=== PATIENT | female | born 1950 | race Caucasian/White ===

== ENCOUNTER 2019-01-14 10:14 | Emergency (ER) | payer BC, SELFPAY ==
[2019-01-14 10:18] VITALS: BP 139/72; PULSE 87; RESP 20; TEMP 37.2; O2SAT 97
--- NOTE | 2019-01-14 10:28 | DI.CT_ITS ---
SYMPTOM/DIAGNOSIS: SORE THROAT WITH FULLNESS NECK CT: A post contrast exam was performed. There is mild symmetric tonsillar enlargement. There is no evidence of abscess, mass or fluid collection. The airway appears intact. The epiglottis appears normal. The parotid and submandibular glands are unremarkable. There is a heterogeneous lesion in the left lobe of the thyroid. The right lobe of the thyroid is unremarkable. There is no vascular occlusion or significant stenosis. The visualized portions of the upper lobes appear clear. There are mild degenerative changes, greatest at the C 5-6 disc level. There is mild sinus disease. The visualized portions of the brain and orbits are unremarkable. IMPRESSION: 1. Mild tonsillar enlargement without evidence of a mass or abscess. 2. Left thyroid nodule. A thyroid ultrasound could be performed for further evaluation.
--- NOTE | 2019-01-14 10:30 | W.ED.GENAD ---
Discharge Plan Disposition Patient Disposition: HOME Condition: Improving Discharge Details Chief Complaint: Sorethroat Clinical Impression: Acute maxillary sinusitis Primary Care Provider: Aayush Lomeli ED Provider: Devon Estrada Home Meds and New Rx's Prescriptions: New cefdinir 300 mg capsule 300 mg PO Q12H 10 Days Qty: 20 RF: 0 No Action No Known Home Meds RF: 0 Discharge Instructions Instructions: Sinusitis (ED) Additional Instructions: Home to rest. Take antibiotics as prescribed. Small, frequent sips of fluids to maintain hydration. May use Tylenol and/or ibuprofen as needed for discomfort. Return for any acute concerns. Follow-up with regular doctor if not improving in 7 days time. Medical Decision Making 68-year-old female presents from home with 3 days of sore throat and mild muffled voice. She is afebrile, well-appearing, normal vital signs. Differential diagnosis would include streptococcal pharyngitis, mononucleosis, deep or danger space infection. IV access established, screening labs obtained home patient given small fluid bolus and parenteral dose of dexamethasone. Please are reassuring. CT with mucosal sinus thickening, no evidence of abscess, otherwise unremarkable study. I will treat her for acute sinusitis with a course of Cefdinir. She stable, improved, appropriate for discharge to home Lab Data Lab results reviewed: Yes I reviewed the patient's lab results. Laboratory Results - last 24 hr 01/14/19 01/14/19 01/14/19 11:20 11:20 11:20 WBC 10.83 H RBC 4.06 Hgb 12.6 Hct 37.3 MCV 91.9 MCH 31.0 MCHC 33.8 RDW 12.8 Plt Count 243 MPV 9.9 Immature Gran % 0.3 Neutrophils % 66.8 Lymphocytes % 14.6 Monocytes % 14.1 Eosinophils % 3.9 Basophils % 0.3 Absolute Neutrophils 7.23 H Absolute Lymphocytes 1.58 Absolute Monocytes 1.53 H Absolute Eosinophils 0.42 Absolute Basophils 0.03 Differential Comment Agrees w/ instrument RBC Morphology Normal Sodium 141 Potassium 4.1 Chloride 103 Carbon Dioxide 29.0 Anion Gap 9.0 BUN 11 Creatinine 0.77 Estimated GFR/1.73 m2 >= 60.00 Glucose 91 Calcium 8.4 L Total Bilirubin 0.3 AST 20 ALT 21 Alkaline Phosphatase 91 Total Protein 7.9 Albumin 3.3 L Monoscreen Negative HPI General Mode of arrival: ambulatory. Date/Time Provider Initiated Documentation: 01/14/19 10:16. Limitations to Documentation: no limitations. Information obtained by: patient. History of Present Illness 68 year old F presents to the emergency department with the chief complaint of Sore throat and mild change to voice, described as moderate, Quality is described as aching, and is localized to the mouth. Patient reports no radiation. Patient started experiencing this day(s) and it has been constant. No relieving factors improve symptom(s), No exacerbating factors reported . Patient notes other (Sinus drainage). Patient did receive the following treatments prior to arrival, none Related Data Home Medications Medication Instructions Recorded Confirmed Unknown [No Known Home Meds] 01/14/19 01/14/19 cefdinir 300 mg PO Q12H 10 Days #20 cap 01/14/19 Previous Rx's Medication Instructions Recorded cefdinir 300 mg PO Q12H 10 Days #20 cap 01/14/19 Allergies Allergy/AdvReac Type Severity Reaction Status Date / Time Penicillins Allergy Unknown Unverified 01/14/19 10:21 General Stated Complaint: Sorethroat MARIA DOLORES: 3 Review of Systems Review of Systems 8 systems reviewed and otherwise negative [facility] Surgical History Appendectomy Biopsy of breast (~2006) Colonoscopy - MAC Excision, Skin Mass Ligation of fallopian tube Social History Smoking and Tabacco status: Never Exam Narrative Exam Narrative: GEN: awake, alert, oriented 3. Pleasant, well groomed, interactive. HEAD: Normocephalic, atraumatic ENT: Mucous membranes moist, oropharynx erythematous tonsillar pillars, uvula midline, no exudate or swelling, External ear exam unremarkable, tympanic membranes clear EYES: PERRL, EOMI NECK: Full ROM, no SHERYL, no menigismus CHEST/RESP: Nontender, clear to auscultation bilateral, no wheeze/rhonchi/rales CARDIOVASCULAR: RRR, no murmur, rub anselmo. 2+ Rad pulse bilateral ABDOMEN: Soft, nontender, no mass. +Bowel sounds EXT: Full ROM, no edema, no rash Neuro: Grossly normal neurologic exam, conversant, interactive. Psych: Speech fluent, thoughts congruent, affect normal Course Vital Signs Temperature 37.2 C 01/14/19 10:18 Pulse 87 01/14/19 10:18 Respiratory Rate 20 01/14/19 10:18 Blood Pressure 139/72 01/14/19 10:18 Pulse Oximetry 97 01/14/19 10:18 Temperature 37.2 C 01/14/19 10:18 Temperature Source Temporal Artery Scan 01/14/19 10:18 Pulse 87 01/14/19 10:18 Respiratory Rate 20 01/14/19 10:18 Respiratory Effort Non-Labored 01/14/19 10:18 Blood Pressure 139/72 01/14/19 10:18 Blood Pressure Position Sitting 01/14/19 10:18 Pulse Oximetry 97 01/14/19 10:18 Oxygen Delivery Method Room Air 01/14/19 10:18 Oxygen Flow Rate 0 01/14/19 10:18 Pain Level 7 01/14/19 10:18
[2019-01-14] MEDS: Normal Saline 1,000 ML 500 ML IV (10:56)
[2019-01-14] MEDS: Dexamethasone 10 MG/ML VIAL IVP (10:56)
[2019-01-14 11:28] LABS: Abs Immature Grans 0.03 k/cumm (0.0-0.09); Absolute Basophil Count 0.03 k/cumm (0.0-0.2); Absolute Eosinophil Count 0.42 k/cumm (0.0-0.7); Absolute Lymphocyte Count 1.58 k/cumm (1.2-3.4); Absolute Monocyte Count 1.53 k/cumm (0.11-0.7); Basophils % 0.3; Eosinophils % 3.9; HCT 37.3 % (36.0-46.0); HGB 12.6 g/dL (12.0-15.5); Immature Grans % 0.3; Lymphocytes % 14.6; Mean Corp. HGB Concentration 33.8 g/dL (32.0-36.0); Mean Corpuscular Volume 91.9 fL (80-95); Mean Platelet Volume 9.9 fL (8.0-11.0); Monocytes % 14.1; Neutrophils % 66.8; Platelet Count 243 x1000/uL (130-400); RBC 4.06 m/cumm (4.00-5.20); RBC Distribution Width 12.8 % (11.7-14.6); White Blood Cell Count 10.83 k/cumm (4.4-10.8)
[2019-01-14 11:37] LABS: Mono Screening Negative (Negative)
[2019-01-14 11:38] LABS: ALT 21 U/L (12-78); AST 20 U/L (15-37); Albumin 3.3 g/dL (3.4-5.0); Alkaline Phosphatase 91 U/L (46-116); BUN 11 mg/dL (7-18); Bilirubin, Total 0.3 mg/dL (0.2-1.0); CREATININE 0.77 mg/dL (0.55-1.02); Calcium 8.4 mg/dL (8.5-10.1); Chloride 103 mmol/L (98-107); Glucose 91 mg/dL (70-100); Potassium 4.1 mmol/L (3.5-5.1); Sodium 141 mmol/L (136-145); Total Protein 7.9 g/dL (6.4-8.2)
[2019-01-14 11:49] LABS: Absolute Neutrophil Count 7.23 k/cumm (1.2-6.7)
[2019-01-14 11:50] LABS: Diff Comment Agrees w/ Instrument
[2019-01-14 11:51] LABS: RBC Morphology Normal
--- NOTE | 2019-01-14 13:00 | DI.VRAD_ITS ---
EXAM: CT Neck With Contrast EXAM DATE/TIME: 01/14/2019 10:30 AM CLINICAL HISTORY: 68 years old, female; Signs and symptoms; Other: Sore throat with fullness TECHNIQUE: Axial computed tomography images of the neck with intravenous contrast. All CT scans at this facility use at least one of these dose optimization techniques: automated exposure control; mA and/or kV adjustment per patient size (includes targeted exams where dose is matched to clinical indication); or iterative reconstruction. Coronal and sagittal reformatted images were created and reviewed. CONTRAST: Contrast Material: 100 ml of omnipaque 350; Contrast Route: iv COMPARISON: No relevant prior studies available. FINDINGS: Sinuses: There is mild mucoperiosteal thickening in the ethmoid air cells and left maxillary sinus. Oropharynx: The tonsils are enlarged. No evidence for a fluid attenuation collection. There is lymphoid hyperplasia at the tongue base. Larynx: Normal. Normal epiglottis. Submandibular/Parotid glands: Normal. Glands are normal in size. Thyroid: There is a large partially enhancing left lobe thyroid lesion 1.9 cm. Followup sonography recommended. Lymph nodes: There is mild bilateral carotids basilar and posterior cervical adenopathy. Lungs: Normal as visualized. Vasculature: No acute findings. Bones/joints: Mild lower cervical spondylosis. Soft tissues: See Thyroid Finding. IMPRESSION: Tonsillitis and pharyngitis. No evidence for abscess. Mild adenitis, likely reactive. COMMENT: Preliminary interpretation is based on receipt of 259 image(s). A final report will be issued subsequently. Dictated and Authenticated by: Cyndy Saavedra MD. Ordering:JOSELUIS Osorio MD
[2019-01-14 13:38] VITALS: BP 139/72; PULSE 87; RESP 20; TEMP 37.2; O2SAT 97
== END 2019-01-14 13:45 | disposition home or self-care (01) ==
PROVIDERS: Emergency Provider Emergency Medicine; PCP Emergency Medicine
DX: J01.00 Acute maxillary sinusitis, unspecified (principal)
CPT/HCPCS: 36415; 70491; 80053; 87880; 96361; 96374; 99285; 85025; 86308; 87081; 99284; J1100

== ENCOUNTER 2023-06-03 01:39 | Outpatient (CLI) | payer MEDICARE, SELFPAY ==
[2023-06-03 12:32] LABS: Hemoglobin A1C 5.6 % (<5.7)
[2023-06-03 12:40] LABS: ALT 23 U/L (14-59); AST 19 U/L (15-37); Albumin 3.8 g/dL (3.4-5.0); Alkaline Phosphatase 73 U/L (46-116); Anion Gap 7.3 mmol/L (3-11); BUN 19 mg/dL (7-18); Bilirubin, Total 0.4 mg/dL (0.2-1.0); CO2 29.7 mmol/L (21.0-32.0); CREATININE 0.8 mg/dL (0.55-1.02); Calcium 9.6 mg/dL (8.5-10.1); Calculated LDL 166 mg/dL (<100); Chloride 106 mmol/L (98-107); Cholesterol 262 mg/dL (<200); Estimated GFR 79.22 (mL/min/1.73m2); Glucose 95 mg/dL (74-106); HDL Cholesterol 88 mg/dL (40-60); Potassium 4.3 mmol/L (3.5-5.1); Sodium 143 mmol/L (136-145); TSH (W/Ref FT4) 0.59 uIU/mL (0.36-3.74); Total Protein 7.5 g/dL (6.4-8.2); Triglyceride 44 mg/dL (<150)
== END 2023-06-03 01:40 | disposition home or self-care (01) ==
LOC: LOS 01:40
PROVIDERS: PCP Nurse Practitioner Family; Visit Provider Nurse Practitioner Family
DX: E78.5 Hyperlipidemia, unspecified (principal); R73.01 Impaired fasting glucose
CPT/HCPCS: 36415; 80053; 80061; 83036; 84443

== ENCOUNTER 2024-06-18 11:25 | Outpatient (CLI) | payer MEDICARE, SELFPAY ==
[2024-06-18 12:55] LABS: Anion Gap 8.1 mmol/L (3-11); BUN 13 mg/dL (7-18); CO2 28.9 mmol/L (21.0-32.0); CREATININE 0.8 mg/dL (0.55-1.02); Calcium 9.6 mg/dL (8.5-10.1); Calculated LDL 152 mg/dL (<100); Chloride 106 mmol/L (98-107); Cholesterol 263 mg/dL (<200); Estimated GFR 78.72 (mL/min/1.73m2); Glucose 96 mg/dL (74-106); HDL Cholesterol 95 mg/dL (40-60); Potassium 3.9 mmol/L (3.5-5.1); Sodium 143 mmol/L (136-145); Triglyceride 81 mg/dL (<150)
[2024-06-19 10:33] LABS: HBs Antibody, Quant <3.1 mIU/mL (See Note); Hep B Surface Ab Negative (See Note); Hepatitis B Core Antibody Negative (Negative); Hepatitis B Surface Antigen Negative (Negative)
[2024-06-19 10:49] LABS: HIV-1/2 Ag & Ab Screen Negative (Negative)
[2024-06-19 11:03] LABS: Hepatitis C Ab w Rflx HCV PCR Negative (Negative)
== END 2024-06-18 11:26 | disposition home or self-care (01) ==
LOC: LOS 11:25
PROVIDERS: PCP Nurse Practitioner Family; Referring Provider Nurse Practitioner Family; Visit Provider Nurse Practitioner Family
DX: Z11.59 Encounter for screening for other viral diseases (principal); Z00.00 Encounter for general adult medical examination without abnormal findings; E78.5 Hyperlipidemia, unspecified; Z11.4 Encounter for screening for human immunodeficiency virus [HIV]; Z71.89 Other specified counseling; Z85.828 Personal history of other malignant neoplasm of skin
CPT/HCPCS: 36415; 80048; 80061; 86704; 86706; 86803; 87340; 87389

== ENCOUNTER 2024-12-04 09:46 | Emergency (ER) | payer MEDICARE, SELFPAY ==
[2024-12-04 09:57] VITALS: BP 149/79; PULSE 78; RESP 18; TEMP 36.8; O2SAT 98
[2024-12-04 10:06] VITALS: BP 149/79; PULSE 78; RESP 18; TEMP 36.8; O2SAT 98
--- NOTE | 2024-12-04 10:15 | DI.RAD_ITS ---
Exam(s) XR CHEST 2V PA LATERAL EXAM: XR CHEST 2V PA LATERAL CLINICAL HISTORY: cough TECHNIQUE: 2D digital imaging was performed. Two views. COMPARISON: CR CHEST 2 VIEWS PA,LAT from 12/24/2017 FINDINGS: HEART: Normal size. Aorta: Not dilated. PULMONARY VASCULATURE: Normal. MEDIASTINUM: Unremarkable. LUNGS: Clear. PLEURAL SPACE: No pleural effusion or pneumothorax. BONE:Unremarkable for age. SOFT TISSUES: Unremarkable. IMPRESSION: No acute abnormality. DATA REPOSITORY: RADIATION DOSE DELIVERED:
[2024-12-04 11:38] LABS: COVID-19 PCR Negative (Negative); Influenza A PCR Negative (Negative); Influenza B PCR Negative (Negative); RSV PCR Negative (Negative)
[2024-12-04 11:39] LABS: Source Nasopharynx
--- NOTE | 2024-12-04 11:44 | ED.GENADUL_ITS ---
Discharge Plan Disposition Patient Disposition: Home Condition: Stable Discharge Details Clinical Impression: Upper respiratory infection Primary Care Provider: June Pierce ED Provider: Jonathan Hernandez Home Meds and New Rx's Prescriptions: No Action No Known Home Meds Discharge Instructions Instructions: Albuterol, Upper Respiratory Infection ED Additional Instructions: You were seen in the emergency department for your respiratory infection for 1 day, you have no tachycardia, you are afebrile and her oxygen saturation is perfect. You likely have a virus as you have diffuse symptoms, you are negative for COVID and the flu and there is no evidence for pneumonia, please use therapeutic dosing of Tylenol (acetamenophen) & Advil (ibuprofen) in an alternat ing fashion as follows: Take 650mg of Tylenol every 6 hours without missing doses- that is 4 times per day. Group Home in between the Tylenol dosings, take 400-600mg of Advil also on a 6 hour schedule, that is also 4 times per day. The daily maximum dosing of Tylenol is 3000mg, and the daily maximum dosing of Advil is 2400mg. This is safe to do for weeks. Please note that some common cold medications & prescription pain medications may contain acetamenophen and you need to read OTC drug labels and factor that in to maximum daily dosings. Please use the provided inhaler for shortness of breath and symptomatic relief, please return to the emergency department for severe increase in chest pain, shortness of breath or any other emergent concerns Referrals: June Pierce, FRONT DESK ATTENDANT [Primary Care Provider] - Discharge Data Discharge Date/Time-TO BE ENTERED AT DEPARTURE: 12/04/24 12:16 HPI General Date/Time Provider Initiated Documentation: 12/04/24 10:17 . HPI Narrative: 73 year-old female presents to ED today by POV/ambulating with a chief complaint of sore throat, coughing, wheezing at nights with onset yesterday. Quality described as generalized upper respiratory infection, no radiation to profound shortness of breath, chest pain, endorses that her lungs are irritated as she is coughing and states that she can taste blood sometimes when she is coughing though she has not coughed up any blood, denies inability to swallow or vocal changes or trismus. Severity is described as moderate. Palliating factors include nothing specific attempted. Provoking factors include nothing specific. Patient not anticoagulated. Related Data Home Medications ?Medication ?Instructions ?Recorded ?Confirmed Unknown [No Known Home Meds] 01/14/19 12/04/24 Allergies Allergy/AdvReac Type Severity Reaction Status Date / Time Penicillins Allergy Severe Paralysis Verified 12/04/24 10:09 General Stated Complaint: RespSymp MARIA DOLORES: 3 Review of Systems All systems reviewed & are unremarkable except as noted in HPI and below Exam Narrative Exam Narrative: GENERAL APPEARANCE: Well-nourished, non-toxic, awake and alert, atraumatic, no acute distress. SKIN: Warm, pink, dry, intact, without rashes/lesions/ulcerations. HEAD: Normocephalic, atraumatic, normal hair distribution for gender/age. EYES: Normal conjunctiva, no exudates on lids/lashes. ENT: Nares patent, no circumoral cyanosis, no facial swelling NECK: Supple, trachea midline, painless cervical ROM. LUNGS/CHEST: Lungs CTA bilaterally, non-labored respirations, normal A/P diamete r, symmetrical expansion, no chest wall deformity HEART (CV/PV): Regular rate and rhythm without murmur, no peripheral edema, no JVD. ABDOMEN: Soft, non-distended, no guarding. MSK: Normal ROM, no swelling/deformity to bilateral UEs or LEs, moving all extremities without weakness, no cyanosis, spine midline without tenderness, normal curvature. NEURO: Mental Status AAOx4 - alert to person, place, time, events No facial droop, no forehead involvement. Motor: No focal weakness - strength 5/5 in bilateral UEs and LEs, proximal and distal, symmetric. Sensory: sensation intact to light touch globally. Gait normal: patient ambulated without ataxia into ED room. PSYCH: euthymic, cooperative, pleasant, appropriate speech Course Vital Signs Vital signs: Vital Signs Temperature 36.8 C 12/04/24 09:57 Pulse 78 12/04/24 09:57 Respiratory Rate 18 12/04/24 09:57 Blood Pressure 149/79 H 12/04/24 09:57 Pulse Oximetry 98 12/04/24 09:57 Temperature 36.8 C 12/04/24 10:06 Temperature Source Oral 12/04/24 10:06 Pulse 78 12/04/24 10:06 Respiratory Rate 18 12/04/24 10:06 Respiratory Effort Non-Labored 12/04/24 10:52 Respiratory Depth Normal 12/04/24 10:52 Blood Pressure 149/79 H 12/04/24 10:06 Blood Pressure Position Sitting 12/04/24 10:06 Pulse Oximetry 98 12/04/24 10:06 Oxygen Delivery Method Room Air 12/04/24 09:57 Oxygen Flow Rate 0 12/04/24 09:57 Pain Level 0 12/04/24 10:06 Lab/Test Results Lab/Test Results: Laboratory Tests Range/Units 12/04/24 10:50 COVID-19 Source Nasopharynx SARS-CoV-2 (PCR) (Negative) Negative Influenza Type A (PCR) (Negative) Negative Influenza Type B (PCR) (Negative) Negative RSV (PCR) (Negative) Negative Medical Decision Making This dictation utilizes [id number] dictation software and may contain unedited grammatical errors. 73 year-old female presents to ED today by POV/ambulating with a chief complaint of sore throat, coughing, wheezing at nights with onset yesterday. Quality described as generalized upper respiratory infection, no radiation to profound shortness of breath, chest pain, endorses that her lungs are irritated as she is coughing and states that she can taste blood sometimes when she is coughing though she has not coughed up any blood, denies inability to swallow or vocal changes or trismus. Severity is described as moderate. Palliating factors include nothing specific attempted. Provoking factors include nothing specific. Patients' medical history: History of skin cancer, hyperlipidemia. Family and social history: No recent travel, no sick contact. Pertinent exam findings / vital signs include lungs CTA, benign posterior oropharynx, no respiratory distress, benign abdomen, nontoxic, nonhypoxic, afebrile. Differential / pathologies of concern include upper respiratory infection, not respiratory failure, possible pneumonia but more likely viral syndrome. Diagnostic studies of: -XR chest, COVID/flu/RSV PCR. -X-ray shows no pneumonia -PCR swab negative Interventions of: -Albuterol inhaler to-go. ED Course/Assessment/Plan: 73-year-old female presents with 1 day of respiratory illness, x-ray shows no pneumonia, her vitals are completely stable, she has multisystem complaints with some fatigue and bodyaches and sore throat as well as cough indicating this is unlikely to be a bacterial infection at this time, not warranted for empiric antibiotics yet, given albuterol inhaler for subjective shortness of breath at home and recommend therapeutic dosing of Tylenol and ibuprofen with strict return criteria for any worsening chest pain, pain with deep inspiration, hemoptysis or other emergent concerns. Findings not consistent with PE-no tachycardia, no risk factors, pneumonia, hypoxic respiratory failure. Disposition of Upper Respiratory Infection. Patient verbalized understanding of the plan and return to ED criteria and engaged in shared decision making. Medical Records Medical records reviewed: Yes I reviewed the patient's medical records. Imaging Data Radiologic Study: Attestation: I personally reviewed and interpreted this imaging study as follows: Imaging: X-Ray Radiologist's impression: EXAM: XR CHEST 2V PA LATERAL CLINICAL HISTORY: cough TECHNIQUE: 2D digital imaging was performed. Two views. COMPARISON: CR CHEST 2 VIEWS PA,LAT from 12/24/2017 FINDINGS: HEART: Normal size. Aorta: Not dilated. PULMONARY VASCULATURE: Normal. MEDIASTINUM: Unremarkable. LUNGS: Clear. PLEURAL SPACE: No pleural effusion or pneumothorax. BONE:Unremarkable for age. SOFT TISSUES: Unremarkable. IMPRESSION: No acute abnormality. Lab Data Lab results reviewed: Yes I reviewed the patient's lab results. Labs: Laboratory Tests Range/Units 12/04/24 10:50 COVID-19 Source Nasopharynx SARS-CoV-2 (PCR) (Negative) Negative Influenza Type A (PCR) (Negative) Negative Influenza Type B (PCR) (Negative) Negative RSV (PCR) (Negative) Negative Quality:SDOH Health Related Social Needs: Health related social needs housing instability, house d, with risk of homelessness (Z59.811) PFSH All Active Problems (Updated 12/04/24 @ 11:46 by ANA Gray) Upper respiratory infection (Acute) History of skin cancer (Chronic) BCC right cheek and left abdomen 2022 Hyperlipidemia (Chronic) Medical History Basal cell carcinoma (BCC) of right cheek Surgical History S/P Mohs surgery for basal cell carcinoma S/P colonoscopy History of bilateral tubal ligation S/P appendectomy Family History (Updated 06/26/24 @ 11:55 by Teresa Kasper) Mother No problems noted. Father , 94 Heart disease Sister No problems noted. Brother Alcohol use disorder Brother No problems noted. Maternal Grandfather , 80 No problems noted. Paternal Grandfather , 103 No problems noted. 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) Pets and animals: Yes Pets and animals: cat(s) Sexually active: No Do you think of yourself as: straight/heterosexual Current gender identity: female What is your relationship status?: How often do you talk on the phone with friends or family?: three or more times per week How often do you get together with friends or relatives?: twice per week How often do you attend christianity or temple services?: 4 or more times per year Do you belong to any clubs or organized social groups?: yes Panel score (0-1 are the most socially isolated patients): 4 What type of physical activity do you participate in: walking Frequency: 1-2 times per week Dianna/Baptism: Zoroastrian Special dianna needs: No Seatbelt use: always Helmet use: Yes Helmet use: always Drive intox or ride w/intox wrecker driver: No Do you feel safe at home: Yes Do you feel safe in your relationship?: Yes Victim of physical abuse: No Victim of emotional abuse: No Victim of sexual abuse: No Female Reproductive History Menstrual Menopause type: natural Date of menopause: 11/21/10
[2024-12-04] MEDS: Albuterol HFA 8 GM 60 PUFF INH IH (12:07)
[2024-12-04 12:08] VITALS: BP 156/63; PULSE 74; RESP 16; O2SAT 97
[2024-12-04] MEDS: Inhaler, Assist Device 1 EACH MC (12:08)
== END 2024-12-04 12:16 | disposition home or self-care (01) ==
PROVIDERS: Emergency Provider Physician Assistant; PCP Nurse Practitioner Family
DX: J06.9 Acute upper respiratory infection, unspecified (principal)
CPT/HCPCS: 87637; 99283; 71046

== ENCOUNTER 2025-06-19 11:03 | Outpatient (CLI) | payer MEDICARE, SELFPAY ==
[2025-06-19 12:43] LABS: ALT 30 U/L (14-59); AST 26 U/L (15-37); Albumin 3.7 g/dL (3.4-5.0); Alkaline Phosphatase 96 U/L (46-116); Anion Gap 8.2 mmol/L (3-11); BUN 20 mg/dL (7-18); Bilirubin, Total 0.5 mg/dL (0.2-1.0); CO2 27.8 mmol/L (21.0-32.0); Calcium 9.2 mg/dL (8.5-10.1); Calculated LDL 141 mg/dL (<100); Chloride 105 mmol/L (98-107); Cholesterol 237 mg/dL (<200); Estimated GFR 95.31 (mL/min/1.73m2); Glucose 94 mg/dL (74-106); HDL Cholesterol 88 mg/dL (>or=50); Potassium 4.0 mmol/L (3.5-5.1); Sodium 141 mmol/L (136-145); Total Protein 7.5 g/dL (6.4-8.2); Triglyceride 40 mg/dL (<150)
== END 2025-06-19 11:04 | disposition home or self-care (01) ==
PROVIDERS: PCP Nurse Practitioner Family; Referring Provider Nurse Practitioner Family; Visit Provider Nurse Practitioner Family
DX: E78.5 Hyperlipidemia, unspecified (principal)
CPT/HCPCS: 36415; 80053; 80061

== ENCOUNTER 2025-07-29 11:35 | Emergency (ER) | payer MEDICARE, SELFPAY ==
[2025-07-29 11:40] VITALS: BP 146/78; PULSE 89; RESP 18; TEMP 37; O2SAT 95
[2025-07-29 11:43] VITALS: BP 146/78; PULSE 89; RESP 18; TEMP 37; O2SAT 95
--- NOTE | 2025-07-29 11:45 | ED.GENADUL_ITS ---
Discharge Plan Disposition Patient Disposition: Home Discharge Details Clinical Impression: Viral upper respiratory infection Primary Care Provider: June Pierce ED Provider: Hemanth Ralph Home Meds and New Rx's Prescriptions: New benzonatate 100 mg capsule 100 mg PO BID PRNQty: 7 0RF cetirizine 10 mg tablet 10 mg PO DAILY PRNQty: 7 0RF promethazine-DM 6.25-15 mg/5 mL syrup 5 ml PO Q6H PRNQty: 118 0RF fluticasone propionate [Flonase Allergy Relief] 50 mcg/actuation spray,suspension 1 spray intranasal DAILY Qty: 16 0RF Rx Instructions: administer into each nostril Discharge Instructions Additional Instructions: You are seen in the emergency department for your cough. Your x-ray showed no sign of pneumonia. Please take this prescription that was sent to the pharmacy. Please return if you develop worsening cough fevers or cannot eat or drink. Otherwise please follow-up with your primary care provider. Discharge Data Discharge Date/Time-TO BE ENTERED AT DEPARTURE: 07/29/25 12:54 HPI General Date/Time Provider Initiated Documentation: 07/29/25 11:45 . HPI Narrative: MDM This is an overall quite well-appearing normothermic and not tachycardic 74-year-old female with URI symptoms and reassuring x-ray for which patient will receive discharged with empiric trial of expectant outpatient management. In the absence of pneumonia I did not feel that the patient required assessment of her labs as it did not plan on calculating a port score. She has no significant posterior oropharynx erythema to suggest strep pharyngitis. Uvula midline so doubt peritonsillar abscess. Concerning her headache she had no nuchal rigidity to suggest meningitis. She had not been vomiting to suggest increased risk for subdural empyema. Her headache was not sudden in onset to suggest increased risk for subarachnoid hemorrhage I did not feel that she required a CT angiogram of her head. No recent chiropractic manipulation to suggest increased risk for cervical arterial dissection. No recent generator exposure to suggest increased risk for carbon monoxide toxicity. She is not altered to suggest encephalitis. No tick bites to suggest Lyme disease. She lacks hypoxia and tachycardia my suspicion was low for pneumonia based on the relatively short duration of her symptoms so I did not feel she required a more sensitive test such as a CT scan. She has no proptosis to suggest orbital cellulitis. No trauma to head to suggest intracranial hemorrhage. She has not been nauseous or vomiting so I do not feel she requires assessment of her electrolytes. Her vital signs not consistent with sepsis I felt that the risks of broad-spectrum antibiotics and blood cultures outweighed the benefits. We discussed that she should return to the emergency department if she developed any worsening symptoms or she did not urinate at least once every 8 hours while awake or if you have any other concerns. I asked healthy coordinator Emy to have the patient seen within the next week by her PCP. Patient understood her return indications she was discharged with an empiric trial of expectant outpatient management. I sent prescription for supportive medications to the patient's pharmacy. HPI This is a patient presenting with symptoms of a cold. The patient began experiencing symptoms of a cold yesterday, including persistent coughing and a runny nose. The runny nose initially affected the right side but has since shifted to the left. The patient reports no contact w ith sick individuals and no instances of vomiting. She experiences chest pain when coughing, which she describes as a deep ache. She is not aware of having a fever. Additionally, she reports a throbbing headache and eye pain. The patient has not taken any [id number] pain relievers such as Tylenol or ibuprofen. She has not had any recent chiropractic manipulation of her neck or exposure to generators. She woke up with a sore throat yesterday morning. Her primary care provider is at [facility]. The patient also reports being bitten by her cat on Tuesday morning, which resulted in significant swelling of her right hand. Exam General: Well-appearing in no acute distress speaking in complete sentences. Head: Normocephalic, atraumatic. Eye: Extraocular eye movements intact. No conjunctival injection. No scleral icterus. Ear, nose, mouth, throat: Grossly normal inspection. Normal voice, handling secretions normally. Uvula midline. No significant posterior oropharynx erythe ma. Neck: Trachea midline. No nuchal rigidity. Cardiovascular: Well-perfused distal extremities. Respiratory: Nonlabored respiration. Gastrointestinal: Nondistended abdomen. Musculoskeletal: No edema. Moving all 4 extremities spontaneously. Skin: Normal for age and race, grossly normal temperature and turgor. No acute rash. Neurologic: Alert and appropriate, no apparent acute deficits. Psychiatric: Mood and manner are appropriate. Grooming and personal hygiene are appropriate. Related Data Home Medications ?Medication ?Instructions ?Recorded ?Confirmed benzonatate 100 mg capsule 100 mg PO BID PRN #7 caps 0 07/29/25 cetirizine 10 mg tablet 10 mg PO DAILY PRN #7 tabs 0 07/29/25 fluticasone propionate 50 1 spray intranasal DAILY #16 grams 07/29/25 mcg/actuation nasal spray,suspension (Flonase Allergy Relief) promethazine-DM 6.25 mg-15 mg/5 mL 5 ml PO Q6H PRN #11 8 mL 07/29/25 oral syrup Previous Rx's ?Medication ?Instructions ?Recorded benzonatate 100 mg capsule 100 mg PO BID PRN #7 caps 0 07/29/25 cetirizine 10 mg tablet 10 mg PO DAILY PRN #7 tabs 0 07/29/25 fluticasone propionate 50 1 spray intranasal DAILY #16 grams 07/29/25 mcg/actuation nasal spray,suspension (Flonase Allergy Relief) promethazine-DM 6.25 mg-15 mg/5 mL 5 ml PO Q6H PRN #11 8 mL 07/29/25 oral syrup Allergies Allergy/AdvReac Type Severity Reaction Status Date / Time Penicillins Allergy Severe Paralysis Verified 07/29/25 11:43 General Stated Complaint: RespSymp MARIA DOLORES: 3 Course Vital Signs Vital signs: Vital Signs Temperature 37.0 C 07/29/25 11:40 Pulse 89 07/29/25 11:40 Respiratory Rate 18 07/29/25 11:40 Blood Pressure 146/78 H 07/29/25 11:40 Pulse Oximetry 95 07/29/25 11:40 Temperature 37.0 C 07/29/25 11:43 Temperature Source Oral 07/29/25 11:43 Pulse 89 07/29/25 11:43 Respiratory Rate 18 07/29/25 11:43 Blood Pressure 146/78 H 07/29/25 11:43 Pulse Oximetry 95 07/29/25 11:43 Medical Decision Making Quality:SDOH Health Related Social Needs: Health related social needs risk of homeless PFSH All Active Problems (Updated 07/29/25 @ 12:32 by Hemanth Ralph MD) Viral upper respiratory infection (Acute) History of skin cancer (Chronic) BCC right cheek and left abdomen 2022 Hyperlipidemia (Chronic) Medical History Basal cell carcinoma (BCC) of right cheek Surgical History S/P Mohs surgery for basal cell carcinoma S/P colonoscopy History of bilateral tubal ligation S/P appendectomy Family History (Updated 06/26/24 @ 11:55 by Teresa Kasper) Mother No problems noted. Father , 94 Heart disease Sister No problems noted. Brother Alcohol use disorder Brother No problems noted. Maternal Grandfather , 80 No problems noted. Paternal Grandfather , 103 No problems noted. 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) Pets and animals: Yes Pets and animals: cat(s) Sexually active: No Do you think of yourself as: straight/heterosexual Current gender identity: female What is your relationship status?: How often do you talk on the phone with friends or family?: three or more times per week How often do you get together with friends or relatives?: three or more times per week How often do you attend lutheran or mormon services?: 4 or more times per year Do you belong to any clubs or organized social groups?: yes Panel score (0-1 are the most socially isolated patients): 3 What type of physical activity do you participate in: walking Duration: > 90 minutes/day Frequency: daily Dianna/Tenriism: Church Special dianna needs: No Agree to transfusion: Yes Seatbelt use: always Helmet use: Yes Helmet use: always Drive intox or ride w/intox party bus driver: No Working smoke detector in home: Yes Carbon monox detector in home: Yes Firearms in home: No Do you feel safe at home: Yes Victim of physical abuse: No Victim of emotional abuse: No Victim of sexual abuse: No Would you like helpful sources: No Female Reproductive History Menstrual Menopause type: natural Date of menopause: 11/21/10
--- NOTE | 2025-07-29 11:45 | DI.RAD_ITS ---
Exam(s) XR CHEST 2V PA LATERAL EXAM: XR CHEST 2V PA LATERAL CLINICAL HISTORY: Shortness of breath. TECHNIQUE: 2D digital imaging was performed. COMPARISON: CR XR CHEST 2V PA LATERAL from 12/04/2024 FINDINGS: 2 views: Heart size is normal. The mediastinum is not widened. Lungs are clear. No infiltrates nor pleural effusions. IMPRESSION: No acute pulmonary findings. DATA REPOSITORY: RADIATION DOSE DELIVERED:
--- NOTE | 2025-07-30 13:51 | NUR.NOTE ---
Nursing Note: Pt was seen here yesterday for respiratory symptoms. Said that she needs a work note to return tomorrow. She reported that she is feeling a lot better and would like to go back. The POC tests came back negative for covid/ flu. I spoke with Dr Pardo and he said he was fine with me giving her a note to return tomorrow. Note printed and given to the patient.
== END 2025-07-29 12:54 | disposition home or self-care (01) ==
PROVIDERS: Emergency Provider Emergency Medicine; PCP Nurse Practitioner Family
DX: J06.9 Acute upper respiratory infection, unspecified (principal); R06.02 Shortness of breath
CPT/HCPCS: 99283 ×2; 87428; 71046

== ENCOUNTER 2025-08-05 13:14 | Outpatient (CLI) | payer MEDICARE, SELFPAY ==
--- NOTE | 2025-08-05 14:15 | DI.RAD_ITS ---
Exam(s) XR CHEST 2V PA LATERAL EXAM: XR CHEST 2V PA LATERAL CLINICAL HISTORY: eval pna J06.9 URI TECHNIQUE: 2D digital imaging was performed of the chest. Two images were obtained. PA and lateral views were obtained. COMPARISON: CR CHEST 2 VIEWS PA,LAT from 12/24/2017 CR XR CHEST 2V PA LATERAL from 07/29/2025 FINDINGS: MEDIASTINUM: Normal. HEART: Normal. PULMONARY VASCULATURE: Normal. LUNGS: Clear. PLEURAL SPACE: No pleural effusion or pneumothorax. BONE:Within normal limits for the patient's age. OTHER FINDINGS:Normal. IMPRESSION: No acute pulmonary findings. DATA REPOSITORY: RADIATION DOSE DELIVERED:
== END 2025-08-05 13:34 ==
LOC: DI 09-20 13:14
PROVIDERS: PCP Nurse Practitioner Family; Visit Provider Nurse Practitioner Family
DX: J06.9 Acute upper respiratory infection, unspecified (principal)
CPT/HCPCS: 71046